=== PATIENT | female | born 1960 | race Caucasian/White ===

== ENCOUNTER → 2019-11-24 | Outpatient (CLI) | payer OTHER ==
[~2019-11-24] MED LIST: LISI1TAB20 PO; OMEP20CA16 PO; VENL75TA PO
== END | disposition home or self-care (01) ==
LOC: LAB 14:41
PROVIDERS: ATTEND Surgery
DX: Z11.59 Encounter for screening for other viral diseases (principal); Z43.9 Encounter for attention to unspecified artificial opening
CPT/HCPCS: C9803; U0003

== ENCOUNTER 2019-11-28 08:51 | Observation (INO) | payer OTHER ==
[~2019-11-28] VITALS: Ht 170.2 cm; Wt 104.5 kg
[2019-11-28] VITALS (9 sets, daily range): BP systolic 91–130; BP diastolic 50–86
[~2019-11-28 08:51] MED LIST changes: +HYDROmorphone 2 MG/ML VIAL IV PRN; +IV RINGERS,LACTATED 1000ML 1,000 ML IV SCH; +LIDOCAINE 1% PF 2 ML VIAL. ID PRN; +LIDOCAINE 2% PF 5 ML VIAL. ONE; +MORPHINE SULFATE 2 MG/ML VIAL. IV PRN; -OMEP20CA16 PO; +ONDANSETRON PF 4 MG/2 ML VIAL. IV PRN; +PHENYLEPHRINE in 0.9% NACL PF 1 MG/10 ML SYRINGE. IV ONE; +PROCHLORPERAZINE 10 MG/2 ML VIAL. IV PRN; +PROPOFOL 10 MG/ML (20ML) VIAL. IV ONE; +ROCURONIUM 50 MG/5 ML VIAL. ONE; +ceFAZolin 2GM PREMIX 2 GM/50 ML BAG IV ONE; +fentaNYL PF VIAL 100 MCG/2 ML VIAL IV PRN; +fentaNYL PF VIAL 100 MCG/2 ML VIAL ONE
[2019-11-28] MEDS ORDERED: OMEP20CA16 PO (09:19)
[2019-11-28] MEDS ORDERED: DEXAMETHASONE SOD PHOS 4 MG/ML VIAL ONE (10:37)
[2019-11-28] MEDS ORDERED: ONDANSETRON PF 4 MG/2 ML VIAL. ONE ×2 (10:37→11:34)
[2019-11-28] MEDS ORDERED: DESFLURANE 31 TO 60 MINUTES IH ONE (10:37)
[2019-11-28] MEDS ORDERED: NEOSTIGMINE METHYLSULFATE 5 MG/5 ML SYRINGE. ONE (10:52)
[2019-11-28] MEDS ORDERED: GLYCOPYRROLATE 1 MG/5 ML VIAL. ONE (10:52)
[2019-11-28] MEDS ORDERED: KETOROLAC 30 MG/ML VIAL. ONE (11:46)
[2019-11-28] MEDS ORDERED: IV NORMAL SALINE 1000ML BAG 1,000 ML IV SCH (11:57)
--- NOTE | 2019-11-28 11:57 | PDOC4 ---
Operative Note Operative Note Operative Note: Preoperative Diagnosis: Ventral hernia Postoperative Diagnosis: Same Procedure: Ventral hernia repair with mesh Surgeon: Hossein Slot Floorperson: Amanda GARCIA Anesthesia: General EBL: 50 mL Specimen: None Drains: None Complications: None Indication: The patient is a 59-year-old female who was referred with a ventral hernia. She was offered surgical repair. The risks of surgery were discussed which include bleeding, infection, recurrence, pain, anesthetic risk, potential need for additional surgery procedure. She understands and would like to proceed. Description: The patient was taken to the operating room and placed supine on the operating table. General anesthesia was performed. The abdomen was prepped with ChloraPrep and draped in a standard surgical manner. The hernia was locate d in the upper abdomen. The vertical incision was made directly overlying the hernia. Cautery dissection was carried down to the subcutaneous tissues. The edges of the hernia defect were clarified. There actually appeared to be a larger defect with a separate smaller defect nearby. The attenuated fascial bridge was divided creating a single defect. A preperitoneal plane was then developed circumferentially with blunt dissection. An elliptical Ventrio ST mesh was then placed into the preperitoneal plane. The mesh was sutured into position with 0 Prolene placed in horizontal mattress fashion. The fascial edges were closed over the mesh with 0 Prolene. The deep subcutaneous tissues were approximated with 0 Vicryl. The superficial subq tissues were closed with 3-0 Vicryl. Skin was closed with 4-0 Monocryl. Steri-Strips and a sterile dressing and binder were applied. The patient tolerated the procedure well and was sent to the recovery room in stable condition. At the end the case all counts were correct. RADHA ESCOBAR MD Nov 28, 2019 11:57
[2019-11-28] MEDS ORDERED: ONDANSETRON PF 4 MG/2 ML VIAL. IVP PRN (12:00)
[2019-11-28] MEDS ORDERED: NALOXONE 0.4 MG/ML VIAL. IV PRN (12:00)
[2019-11-28] MEDS ORDERED: PROCHLORPERAZINE 10 MG/2 ML VIAL. IV PRN (12:00)
[2019-11-28] MEDS ORDERED: HYDROmorphone 2 MG/ML VIAL IV PRN (12:00)
[2019-11-28] MEDS ORDERED: 0.9 % SODIUM CHLORIDE 10 ML DISP.SYRIN. IV PRN (12:00)
[2019-11-28] MEDS: IV 1/2 NORMAL SALINE 1,000 ML IV SCH (13:28)
[2019-11-28] MEDS: hydroCHLOROthiazide 25 MG TABLET PO SCH (13:29)
[2019-11-28] MEDS: VENLAFAXINE 75 MG TABLET. PO SCH ×2 (13:29→20:17)
[2019-11-28] MEDS: HYDROcodone/APAP 5/325MG 1 TAB TABLET PO PRN ×3 (13:29→22:39)
[2019-11-29] MEDS: IV 1/2 NORMAL SALINE 1,000 ML IV SCH (00:27)
[2019-11-29 03:00] VITALS: BP 101/61
[2019-11-29 07:00] VITALS: BP 116/73
[2019-11-29] MEDS ORDERED: PANTOPRAZOLE 40 MG TABLET.DR. PO SCH (07:30)
[2019-11-29] MEDS: hydroCHLOROthiazide 25 MG TABLET PO SCH (08:56)
[2019-11-29] MEDS: VENLAFAXINE 75 MG TABLET. PO SCH ×2 (08:56→14:00)
[2019-11-29] MEDS: HYDROcodone/APAP 5/325MG 1 TAB TABLET PO PRN (08:57)
[2019-11-29] MEDS ORDERED: LISINOPRIL 20 MG TABLET PO SCH (09:00)
--- NOTE | 2019-11-29 09:21 | PDOC ---
PROGRESS NOTES Subjective Subjective doing well Objective Objective Vital Signs Date Time Temp Pulse Resp B/P (MAP) Pulse Ox O2 Delivery O2 Flow Rate FiO2 11/29/19 08:57 Room Air 11/29/19 08:56 91 116/73 11/29/19 07:00 97.8 18 92 97.8 11/29/19 03:00 3.0 Intake and Output 11/29/19 06:59 Intake Total 2410 ml Output Total 5 ml Balance 2405 ml Intake Oral 560 ml IV Total 1850 ml Output Estimated Blood Loss 5 ml # Voids 2 Physical Exam Abdomen: Soft (dressing intact) Assessment Assessment ventral hernia repair POD 1 Plan Plan of Care Discharge Comment Review of Relevant I have reviewed the following items shayla (where applicable) has been applied. Medications Current Medications Ondansetron HCl (Zofran) 4 mg PRN Q6HRS PRN IV NAUSEA/VOMITING; Start 11/28/19 at 07:00; Stop 11/28/19 at 13:18; Status DC Fentanyl Citrate (Fentanyl 2ml Vial) 25 mcg PRN Q5MIN PRN IV MILD PAIN 1-3; Start 11/28/19 at 07:00; Stop 11/28/19 at 13:18; Status DC Fentanyl Citrate (Fentanyl 2ml Vial) 50 mcg PRN Q5MIN PRN IV MODERATE TO SEVERE PAIN; Start 11/28/19 at 07:00; Stop 11/28/19 at 13:18; Status DC Morphine Sulfate (Morphine Sulfate) 1 mg PRN Q10MIN PRN IV SEVERE PAIN 7-10; Start 11/28/19 at 07:00; Stop 11/28/19 at 13:18; Status DC Ringer's Solution 1,000 ml @ 30 mls/hr Q24H IV Last administered on 11/28/19at 09:28; Start 11/28/19 at 07:00; Stop 11/28/19 at 13:18; Status DC Lidocaine HCl (Xylocaine-Mpf 1% 2ml Vial) 2 ml PRN 1X PRN ID PRIOR TO IV START; Start 11/28/19 at 07:00; Stop 11/29/19 at 06:59; Status DC Hydromorphone HCl (Dilaudid) 0.5 mg PRN Q10MIN PRN IV SEV PAIN, Second choice; Start 11/28/19 at 07:00; Stop 11/28/19 at 13:18; Status DC Prochlorperazine Edisylate (Compazine) 5 mg PACU PRN PRN IV NAUSEA, MRX1; Start 11/28/19 at 07:00; Stop 11/28/19 at 13:18; Status DC Cefazolin Sodium/ Dextrose 50 ml @ 100 mls/hr 1X PREOP PRN IV PRIOR TO PROCEDURE Last administered on 11/28/19at 10:25; Start 11/28/19 at 06:00; Stop 11/28/19 at 18:00; Status DC Propofol (Diprivan) 200 mg STK-MED ONCE IV ; Start 11/28/19 at 08:07; Stop 11/28/19 at 08:08; Status DC Lidocaine HCl (Lidocaine Pf 2% Vial) 5 ml STK-MED ONCE .ROUTE ; Start 11/28/19 at 08:07; Stop 11/28/19 at 08:08; Status DC Rocuronium [place] (Zemuron) 50 mg STK-MED ONCE .ROUTE ; Start 11/28/19 at 08:08; Stop 11/28/19 at 08:08; Status DC Fentanyl Citrate (Fentanyl 2ml Vial) 100 mcg STK-MED ONCE .ROUTE ; Start 11/28/19 at 08:08; Stop 11/28/19 at 08:08; Status DC Phenylephrine HCl (PHENYLEPHRINE in 0.9% NACL PF) 1 mg STK-MED ONCE IV ; Start 11/28/19 at 08:11; Stop 11/28/19 at 08:11; Status DC Ondansetron HCl (Zofran) 4 mg STK-MED ONCE .ROUTE ; Start 11/28/19 at 10:37; Stop 11/28/19 at 10:37; Status DC Dexamethasone Sodium Phosphate (Decadron) 4 mg STK-MED ONCE .ROUTE ; Start 11/28/19 at 10:37; Stop 11/28/19 at 10:37; Status DC Desflurane (Suprane) 30 ml STK-MED ONCE IH ; Start 11/28/19 at 10:37; Stop 11/28/19 at 10:37; Status DC Neostigmine [place] (Neostigmine Methylsulfate) 5 mg STK-MED ONCE .ROUTE ; Start 11/28/19 at 10:52; Stop 11/28/19 at 10:52; Status DC Glycopyrrolate (Robinul) 1 mg STK-MED ONCE .ROUTE ; Start 11/28/19 at 10:52; Stop 11/28/19 at 10:52; Status DC Ondansetron HCl (Zofran) 4 mg STK-MED ONCE .ROUTE ; Start 11/28/19 at 11:34; Stop 11/28/19 at 11:35; Status DC Ketorolac Tromethamine (Toradol 30mg Vial) 30 mg STK-MED ONCE .ROUTE ; Start 11/28/19 at 11:46; Stop 11/28/19 at 11:46; Status DC Sodium Chloride (Normal Saline Flush) 3 ml QSHIFT PRN IV AFTER MEDS AND BLOOD DRAWS; Start 11/28/19 at 12:00 Sodium Chloride 1,000 ml @ 80 mls/hr [id number] IV Last administered on 11/28/19at 13:28; Start 11/28/19 at 11:57 Acetaminophen/ Hydrocodone Bitart (Lortab 5/325) 1 tab PRN Q4HRS PRN PO MILD PAIN 1-3 Last administered on 11/28/19at 17:55; Start 11/28/19 at 12:00 Acetaminophen/ Hydrocodone Bitart (Lortab 5/325) 2 tab PRN Q4HRS PRN PO MODERATE PAIN, SEVERE PAIN Last administered on 11/29/19at 08:57; Start 11/28/19 at 12:00 Naloxone HCl (Narcan) 0.4 mg PRN Q2MIN PRN IV SEE INSTRUCTIONS; Start 11/28/19 at 12:00 Sodium Chloride 1,000 ml @ 25 mls/hr Q24H IV ; Start 11/28/19 at 11:57; Stop 11/28/19 at 13:18; Status DC Hydromorphone HCl (Dilaudid) 0.2 mg PRN Q1HR PRN IV PAIN; Start 11/28/19 at 12:00 Ondansetron HCl (Zofran) 4 mg PRN Q6HRS PRN IVP NAUESA, 1ST CHOICE; Start 11/28/19 at 12:00 Prochlorperazine Edisylate (Compazine) 5 mg PRN Q6HRS PRN IV N/V, 2nd Choice, MR X1; Start 11/28/19 at 12:00 Venlafaxine HCl (Effexor) 150 mg TID PO Last administered on 11/29/19at 08:56; Start 11/28/19 at 14:00 Lisinopril (Prinivil) 20 mg DAILY PO Last administered on 11/29/19at 08:56; Start 11/29/19 at 09:00 Pantoprazole Sodium (Protonix) 40 mg DAILYAC PO Last administered on 11/29/19at 08:56; Start 11/29/19 at 07:30 Hydrochlorothiazide (Hydrodiuril) 25 mg DAILY PO Last administered on 11/29/19at 08:56; Start 11/28/19 at 13:00 Active Scripts Active Reported Omeprazole 20 Mg Capsule. 1 Cap PO DAILY Venlafaxine Hcl 75 Mg Tablet 150 Mg PO TID Lisinopril-Hctz 20-25 Mg Tab (Lisinopril/Hydrochlorothiazide) 1 Each Tablet 1 Tab PO DAILY Vitals/I & O Vital Sign - Last 24 Hours 11/28/19 11/28/19 11/28/19 11/28/19 09:24 11:57 11:57 12:15 Temp 97.5 99.9 97.5 99.9 Pulse 85 93 83 Resp 18 16 16 B/P (MAP) 136/88 140/67 119/76 Pulse Ox 97 99 94 O2 Delivery Room Air Mask Simple Mask Simple Mask O2 Flow Rate 8 8 8 11/28/19 11/28/19 11/28/19 11/28/19 12:28 12:45 13:00 13:15 Temp 99.9 98.0 99.9 98.0 Pulse 66 68 77 20 Resp 16 22 14 18 B/P (MAP) 120/75 129/66 121/77 121/83 (96) Pulse Ox 91 93 94 92 O2 Delivery Nasal Cannula Nasal Cannula Nasal Cannula Room Air O2 Flow Rate 3 3 3 11/28/19 11/28/19 11/28/19 11/28/19 13:29 13:30 13:45 14:00 Pulse 85 84 82 B/P (MAP) 121/83 (96) 130/85 (100) 124/58 (80) Pulse Ox 93 94 92 O2 Delivery Room Air Room Air Room Air Room Air 11/28/19 11/28/19 11/28/1911/27/20 14:30 14:38 15:00 15:46 Pulse 91 91 B/P (MAP) 127/78 (94) 123/78 (93) Pulse Ox 93 93 O2 Delivery Room Air Nasal Cannula Room Air Nasal Cannula O2 Flow Rate 3.0 3.0 11/28/19 11/28/19 11/28/19 11/28/19 16:24 17:55 19:00 19:09 Temp 98.0 98.1 98.0 98.1 Pulse 82 102 Resp 20 B/P (MAP) 124/58 (80) 130/86 (101) Pulse Ox 92 91 O2 Delivery Nasal Cannula Nasal Cannula Nasal Cannula Nasal Cannula O2 Flow Rate 3.0 3.0 3.0 2.0 11/28/19 11/28/19 11/28/19 11/28/19 20:15 22:39 23:00 23:39 Temp 98.8 98.8 Pulse 106 Resp 18 20 16 B/P (MAP) 91/50 (64) Pulse Ox 92 90 O2 Delivery Room Air Room Air Nasal Cannula Room Air O2 Flow Rate 3.0 11/29/19 11/29/19 11/29/19 11/29/19 03:00 07:00 08:56 08:57 Temp 98.1 97.8 98.1 97.8 Pulse 95 91 91 Resp 20 18 B/P (MAP) 101/61 (74) 116/73 (87) 116/73 Pulse Ox 90 92 O2 Delivery Nasal Cannula Room Air Room Air O2 Flow Rate 3.0 Intake and Output 11/28/19 11/28/19 11/29/19 14:59 22:59 06:59 Intake Total 1850 ml 360 ml 200 ml Output Total 5 ml Balance 1845 ml 360 ml 200 ml RADHA ESCOBAR MD Nov 29, 2019 09:21
--- NOTE | 2019-11-29 09:23 | DISCH ---
DISCHARGE INSTRUCTIONS Condition on Discharge Condition on Discharge: Stable Activity After Discharge Activity Instructions for Disc: Other, see below (no lifting over 20 lbs X 6 weeks) Driving Instructions after Dis: Other, see below (no driving if taking pain meds) Diet after Discharge Diet after Discharge: Regular Wound Incision Care Wound/Incision Care: Other, see below (keep dressing clean and dry X 72 hours, may then remove and shower) Follow-Up Follow up with: Dr Escobar in office in 2 weeks, call for appt [phone] RADHA ESCOBAR MD Nov 29, 2019 09:23
--- NOTE | 2019-11-29 09:24 | PDOC3 ---
Discharge Summary Visit Information Date of Admission: Nov 28, 2019 Date of Discharge: Nov 29, 2019 Final Diagnosis Ventral hernia Brief Hospital Course Allergies Allergies Coded Allergies Type Severity Reaction Last Updated Verified No Known Drug Allergies 11/28/19 No Vital Signs Vital Signs Date Time Temp Pulse Resp B/P (MAP) Pulse Ox O2 Delivery O2 Flow Rate FiO2 11/29/19 08:57 Room Air 11/29/19 08:56 91 116/73 11/29/19 07:00 97.8 18 92 97.8 11/29/19 03:00 3.0 Brief Hospital Course Ms. Hoffman is a 59 old female who presented with a ventral hernia. She underwent surgical repair and her postoperative course was uneventful. She is discharged on postoperative day 1. Discharge Information Scheduled Lisinopril/Hydrochlorothiazide (Lisinopril-Hctz 20-25 Mg Tab) 1 Each Tablet, 1 TAB PO DAILY for TREAT BP, #90 Ref 3 (Reported) Entered as Reported by: PILLO CARLSON on 11/25/191709 Last Taken: Unknown Dose on 11/27/19 Last Action: Converted on 11/28/19 1200 by RADHA ESCOBAR Omeprazole (Omeprazole) 20 Mg Capsule.dr, 1 CAP PO DAILY for reflux, #30 Ref 5 (Reported) Entered as Reported by: CHRIS MARTINEZ on 11/28/19 0919 Last Taken: Unknown Dose on 11/27/19 Last Action: Converted on 11/28/19 1200 by RADHA ESCOBAR Venlafaxine Hcl (Venlafaxine Hcl) 75 Mg Tablet, 150 MG PO TID for ANTI- DEPRESSANT, (Reported) Entered as Reported by: PILLO CARLSON on 11/25/191709 Last Taken: Unknown Dose on 11/27/19 Last Action: Continued on 11/28/19 1200 by RADHA ESCOBAR Justicifation of Admission Dx: Justifications for Admission: Justification of Admission Dx: Yes RADHA ESCOBAR MD Nov 29, 2019 09:24
--- NOTE | 2019-11-29 09:40 | NUR ---
SW following. Discussed with RN, pt from home. Discharge order for home with self care. RN advised no SW needs.
[2019-11-29 11:00] VITALS: BP 108/72
[2019-11-29 15:00] VITALS: BP 115/62
--- NOTE | 2019-11-29 18:29 | NUR ---
Discharge Note: PT DISCHARGED HOME WITH SELF CARE. PT LEFT FACILITY VIA PRIVATE VEHICLE AT 1828. PT STABLE AND ALERT UPON DISCHARGE. PT PIV REMOVED FROM L HAND WITHOUT COMPLICATIONS, BANDAGE APPLIED. PT EDUCATED ABOUT INCISION CARE, FOLLOW-UP INSTRUCTIONS, DISCHARGE INSTRUCTIONS, AND DISCHARGE MEDICATIONS. NO CONCERNS VOICED AT THIS TIME. PT LEFT WITH ALL PERSONAL BELONGINGS. LIANA HINTON Discharge instructions and discharge home medications reviewed with Patient and a copy given. All questions have been answered and understanding verbalized.
== END 2019-11-29 18:28 | disposition home or self-care (01) ==
LOC: SURG 08:51 → EDUNIT# 12:00 → 4 NORTH 12:47
PROVIDERS: ADMIT Surgery; ATTEND Surgery
DX: K43.9 Ventral hernia without obstruction or gangrene (principal); K21.9 Gastro-esophageal reflux disease without esophagitis
CPT/HCPCS: 49560; 49568; 96365; A7015; C1713; C1781; G0378; G0379; J0696; J1100; J1885; J2405; J2704; J2710; J3010; J3490; J7120; J2370